=== PATIENT | male | born 1995 | race Caucasian/White ===

== ENCOUNTER 2021-01-05 09:26 | Emergency (ER) | payer BC ==
[2021-01-05] MEDS ORDERED: Diphtheria,Pertussis(Acell),Tetanus Vaccine 0.5 ML Syringe IM ONE (09:32)
--- NOTE | 2021-01-05 10:02 | CR ---
PROCEDURE INFORMATION: Exam: XR Right Finger(s) Exam date and time: 01/05/2021 9:54 AM Age: 25 years old Clinical indication: Other: Slammed finger in door TECHNIQUE: Imaging protocol: XR Right fingers. Views: Minimum 2 views. COMPARISON: No relevant prior studies available. FINDINGS: Bones/joints: Normal. Soft tissues: Soft tissue swelling about the right middle finger. IMPRESSION: No fracture identified. Soft tissue swelling about the right middle finger
[2021-01-05] MEDS ORDERED: Bacitracin Oint 1 GM U/D Packet ONE (10:14)
[2021-01-05] MEDS ORDERED: Bacitracin Oint 1 GM U/D Packet TOP ONE (10:15)
--- NOTE | 2021-01-05 10:15 | EDM.PDOC ---
ED HPI GENERAL MEDICAL PROBLEM - General Stated Complaint: SMASHED MIDDLE FINGER Time Seen by Provider: 01/05/21 10:05 Source of Information: Reports: Patient History Limitations: Reports: No Limitations - History of Present Illness INITIAL COMMENTS - FREE TEXT/NARRATIVE: This 25 yo male patient reports to the ED with a right distal 3rd finger injury. The patient reports he shut his finger in a door while riding a one wheeled skateboard earlier today. The patient reports that he had difficulties opening the door and had to call a family member to open the door for him. The patient reports some minimal pain to the area at this time. Onset: Today Duration: Hour(s):, Constant Location: Reports: Upper Extremity, Right Quality: Reports: Ache, Dull, Pressure Severity: Mild Improves with: Reports: None Worsens with: Reports: None Context: Reports: Activity Associated Symptoms: Reports: No Other Symptoms Right Finger-Middle Pain Score (Numeric/FACES): 4 - Related Data Allergies Allergy/AdvReac Type Severity Reaction Status Date / Time No Known Allergies Allergy Verified 01/05/21 09:49 Home Meds: Home Meds . [No Known Home Meds] 01/05/21 [History] Past Medical History - Past Health History Medical/Surgical History: Denies Medical/Surgical History Social & Family History - Tobacco Use Tobacco Use Status *Q: Never Tobacco User - Caffeine Use Caffeine Use: Reports: None - Recreational Drug Use Recreational Drug Use: No Review of Systems - Review of Systems Review Of Systems: Comprehensive ROS is negative, except as noted in HPI. ED EXAM, GENERAL - Physical Exam Exam: See Below Exam Limited By: Uncooperative General Appearance: Alert, No Apparent Distress Eye Exam: Bilateral Eye: Normal Inspection, PERRL Ears: Normal External Exam, Hearing Grossly Normal Nose: Normal Inspection, No Blood Throat/Mouth: Normal Lips, Normal Teeth, Normal Voice Head: Atraumatic, Normocephalic Neck: Full Range of Motion Respiratory/Chest: No Respiratory Distress, No Accessory Muscle Use, Chest Non- Tender Cardiovascular: Normal Peripheral Pulses, Regular Rate, Rhythm (Male) Exam: Deferred Rectal (Males) Exam: Deferred Extremities: Arm Pain (Right distal 3rd finger swelling. Bruising to fingernail. Small amount minor bleeding around the nail bed) Neurological: Alert, Oriented, CN II-XII Intact, Normal Cognition, Normal Gait, Normal Reflexes, No Motor/Sensory Deficits Psychiatric: Normal Affect, Normal Mood Skin Exam: Other (abrasion to distal right 3rd finger ) Lymphatic: No Adenopathy Course - Vital Signs Last Recorded V/S: Last Vital Signs Temp 98 F 01/05/21 09:45 Pulse 87 01/05/21 09:45 Resp 14 01/05/21 09:45 BP 126/75 01/05/21 09:45 Pulse Ox 98 01/05/21 09:45 - Orders/Labs/Meds Orders: Active Orders 24 hr Category Date Time Status Vaccines to be Administered [RC] PER UNIT ROUTINE Care 01/05/21 09:32 Active Meds: Medications Discontinued Medications Generic Name Dose Route Start Last Admin Trade Name Freq PRN Reason Stop Dose Admin Bacitracin 1 dose 01/05/21 10:15 Bacitracin Oint 1 Gm U/D Packet TOP 01/05/21 10:16 ONETIME ONE Diphtheria/Tetanus/Acell Pertussis 0.5 ml 01/05/21 09:32 01/05/21 10:04 Diphtheria,Pertussis(Acell),Tetanus Vaccine 0.5 Ml Syringe IM 01/05/21 09:33 0.5 ml .ONCE ONE Administration - Radiology Interpretation Free Text/Narrative:: [facility] Final Radiology Report Call: [phone] assistance Online chat: [email or web address] Name: BRANDON PINEDA Age: 25Years M Date: 01/05/2021 SSN: -- : [id number] Study: CR FINGERS THIRD DIGIT RT Requesting Physician: Bigg Garcia Images: 3 Addl Studies: Provided Clinical History: slammed finger in door Contrast: Contrast Medium: Contrast Amount: Contrast Method: CONFIDENTIALITY STATEMENT This report is intended only for use by the referring physician, and only in accordance with law. If you received this in error, call [phone]. Page 1 of 1 PROCEDURE INFORMATION: Exam: XR Right Finger(s) Exam date and time: 01/05/2021 9:54 AM Age: 25 years old Clinical indication: Other: Slammed finger in door TECHNIQUE: Imaging protocol: XR Right fingers. Views: Minimum 2 views. COMPARISON: No relevant prior studies available. FINDINGS: Bones/joints: Normal. Soft tissues: Soft tissue swelling about the right middle finger. IMPRESSION: No fracture identified. Soft tissue swelling about the right middle finger Thank you for allowing us to participate in the care of your patient. Dictated and Authenticated by: Madelin Petit MD 01/05/2021 10:02 AM Central Time ([place] & [place]) Departure - Departure Time of Disposition: 10:11 Disposition: Home, Self-Care 01 Condition: Fair Clinical Impression: Subungual hematoma of finger of right hand Qualifiers: Encounter type: initial encounter Qualified Code(s): S60.10XA - Contusion of unspecified finger with damage to nail, initial encounter Abrasion of finger, right Qualifiers: Encounter type: initial encounter Qualified Code(s): S60.419A - Abrasion of unspecified finger, initial encounter - Discharge Information *PRESCRIPTION DRUG MONITORING PROGRAM REVIEWED*: Not Applicable *COPY OF PRESCRIPTION DRUG MONITORING REPORT IN PATIENT KAJAL: Not Applicable Instructions: Subungual Hematoma, [id number] Forms: ED Department Discharge Care Plan Goals: The patient was advised of the examination and x-ray results during the visit. The patient's finger was dressed with antibiotic ointment, covered with a sterile dressing and splinted (for protection) while in the ED. The patient was given a Tetanus injection during the visit. The patient was encouraged to rest, ice and elevate (above the level of his heart) the right hand. If the patient has any additional symptoms or concerns, the patient should either return to the emergency department or visit his primary care facility. Sepsis Event Note (ED) - Evaluation Sepsis Screening Result: No Definite Risk - Focused Exam Vital Signs: Vital Signs Temp Pulse Resp BP Pulse Ox 01/05/21 09:45 98 F 87 14 126/75 98 - My Orders Last 24 Hours: My Active Orders 01/05/21 09:32 Vaccines to be Administered [RC] PER UNIT ROUTINE - Assessment/Plan Last 24 Hours: My Active Orders 01/05/21 09:32 Vaccines to be Administered [RC] PER UNIT ROUTINE
== END 2021-01-05 10:23 | disposition home or self-care (01) ==
LOC: DL.ED 09:26
DX: S60.131A Contusion of right middle finger with damage to nail, initial encounter (principal); Z23 Encounter for immunization; W23.0XXA Caught, crushed, jammed, or pinched between moving objects, initial encounter
CPT/HCPCS: 73140-F7; 90471; 90715; 99283-25